=== PATIENT | male | born 1960 | race Caucasian/White ===

== ENCOUNTER 2017-04-03 09:48 | Outpatient (CLI) | payer BC | END 2017-04-03 09:49 | disposition home or self-care (01) | LOC: LAB.F 09:48 | PROVIDERS: ATTEND Physician Assistant Medical | DX: Z79.899 Other long term (current) drug therapy (principal); E29.1 Testicular hypofunction | CPT/HCPCS: 36415; 81599; 84402; 84403 ==

== ENCOUNTER 2017-07-21 16:24 | Emergency (ER) | payer BC ==
[2017-07-21 16:40] VITALS: BP 144/74
[2017-07-21] MEDS ORDERED: DEXAMETHASONE 10 MG/ML VIAL PO STA (16:46)
--- NOTE | 2017-07-21 16:49 | ED Physician Documentation ---
PD HPI URI - Stated complaint Stated Complaint: COUGH, SOB - Chief complaint Chief Complaint: Resp - History obtained from History obtained from: Patient, Family - History of Present Illness Timing - onset: How many days ago (4) Timing duration: Days (4) Timing details: Gradual onset, Still present Associated symptoms: Fever, Nasal congestion, Rhinorrhea, Sinus pain, Sore throat, Dry cough, Dyspnea Contributing factors: Sick contact Improves by: Rest, Medication Worsened by: Activity Similar symptoms before: Diagnosis (bronchitis) Recently seen: Not recently seen - Additional information Additional information: 57-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 PD PAST MEDICAL HISTORY - Present Medications Home Medications: Ambulatory Orders Medication Instructions Recorded Confirmed Azithromycin [Zithromax] 250 mg PO DAILY #6 tablet 07/21/17 Benzonatate [Tessalon] 100 - 200 mg PO TID PRN #20 capsule 07/21/17 PD ED PE NORMAL - Vitals Vital signs reviewed: Yes (hypertensive ) - General General: Alert and oriented X 3, No acute distress, Well developed/nourished - HEENT HEENT: Atraumatic, PERRL, EOMI, Other (both TM's are erythematous with rounding of the landmarks. The pharnyx is erythematous without exudate. ) - Neck Neck: Supple, no meningeal sign, No bony TTP - Cardiac Cardiac: RRR, No murmur - Respiratory Respiratory: No respiratory distress, Other (clear but with diminished sounds. ) - Abdomen Abdomen: Soft, Non tender - Back Back: No CVA TTP, No spinal TTP - Derm Derm: Normal color, Warm and dry, No rash - Extremities Extremities: No deformity, No edema - Neuro Neuro: Alert and oriented X 3, No motor deficit, No sensory deficit Eye Opening: Spontaneous Motor: Obeys Commands Verbal: Oriented GCS Score: 15 - Psych Psych: Normal mood, Normal affect Results - Vitals Vitals: Vital Signs - 24 hr 07/21/17 16:38 Temperature 36.8 C Heart Rate 77 Respiratory 18 Rate Blood Pressure 144/74 H O2 Saturation 99 Oxygen O2 Source Room air - EKG (time done) 1643 Rate: Rate (enter#) (70) Rhythm: NSR Norman: Normal Ischemia: Normal ST segments Other comments: Other comments (early transition) Compare to prior EKG: Old EKG unavailable Computer interpretation: Agree with computer PD MEDICAL DECISION MAKING - ED course Complexity details: reviewed results, re-evaluated patient, considered differential, d/w patient, d/w family ED course: 57-year-old male with a cough and congestion has otitis on examination he does have some diminished breath sounds without wheezes he is not hypoxic. He is administered Dexamethasone and we will place him on some azithromycin. Departure - Departure Disposition: 01 Home, Self Care Clinical Impression: Otitis media Qualifiers: Otitis media type: suppurative Chronicity: acute Laterality: bilateral Recurrence: not specified as recurrent Spontaneous tympanic membrane rupture: without spontaneous rupture Qualified Code(s): H66.003 - Acute suppurative otitis media without spontaneous rupture of ear drum, bilateral Condition: Stable Instructions: ED Otitis Media Acute Adult Follow-Up: Radha Ferro PA-C [Primary Care Provider] - Prescriptions: Azithromycin [Zithromax] 250 mg PO DAILY #6 tablet Benzonatate [Tessalon] 100 - 200 mg PO TID PRN #20 capsule PRN Reason: Cough Forms: Activity restrictions
== END 2017-07-21 17:02 | disposition home or self-care (01) ==
LOC: ED 16:24
DX: H66.003 Acute suppurative otitis media without spontaneous rupture of ear drum, bilateral (principal)
CPT/HCPCS: 93005; 99281; 99283

== ENCOUNTER 2018-01-23 07:46 | Outpatient (CLI) | payer BC ==
[2018-01-23 08:37] LABS: BUN - BLOOD UREA NITROGEN 16 mg/dL (6-20); CALCIUM 9.2 mg/dL (8.5-10.3); CARBON DIOXIDE - CO2 30 mmol/L (21-32); CHLORIDE 101 mmol/L (101-111); CHOL/HDL RATIO 3.6 (<5.0); CHOLESTEROL 195 mg/dL; CREATININE 1.1 mg/dL (0.6-1.2); GFR - MDRD 69 (>89); GLUCOSE 96 mg/dL (70-100); HDL CHOLESTEROL 54 mg/dL; LDL CHOLESTEROL,CALCULATED 128 mg/dL; LDL/HDL RATIO 2.4 (<3.6); SODIUM 139 mmol/L (135-145); VLDL CHOLESTEROL 13 mg/dL
== END 2018-01-23 07:47 | disposition home or self-care (01) ==
LOC: LAB 07:46
PROVIDERS: ATTEND Internal Medicine
DX: Z00.00 Encounter for general adult medical examination without abnormal findings (principal); E29.1 Testicular hypofunction; Z12.5 Encounter for screening for malignant neoplasm of prostate
CPT/HCPCS: 36415; 80048; 80061; 81599; 83721; 84153

== ENCOUNTER 2018-04-10 10:27 | Outpatient (CLI) | payer BC ==
--- NOTE | 2018-04-12 01:49 | CT Report ---
Reason: GRECIA ABUSE Procedure Date: 04/10/2018 Accession Number: [id number] / [id number] Procedure: CT - Chest/Lung Screen Low Dose W/O CPT Code: FULL RESULT: EXAM CT LUNG SCREEN EXAM DATE: 04/10/2018 10:43 AM. HISTORY: 58-year-old patient with [id number] smoking history. Currently smoking: No. Years since quittin. COMPARISON: CT THORAX W/O CONT 07/31/2012 9:11 AM. TECHNIQUE: CT examination of the entire thorax without contrast was performed using low-dose technique. Thin section coronal, axial, sagittal and MIP axial images were obtained. In accordance with CT protocol optimization, one or more of the following dose reduction techniques were utilized for this exam: automated exposure control, adjustment of mA and/or KV based on patient size, or use of iterative reconstructive technique. FINDINGS: Nodules: Right upper lobe: None. Right middle lobe: None. Right lower lobe: None. Left upper lobe: None. Left lower lobe: None. Emphysema: None. Pleura: Unremarkable. Aorta: Unremarkable. Mediastinum: Unremarkable. Coronary calcifications: None. Other pulmonary findings: There is some mild reticular density within the posterior lungs which probably represent scarring. Other extrapulmonary findings: There are remote left-sided rib fractures. There is a small hiatal hernia. IMPRESSION: Lung-RADS ASSESSMENT CATEGORY: 1 - Negative. Probability of malignancy: Less than 1% RECOMMENDATION: Continue with annual screening as indicated. Recommended follow up based on Lung-RADS guidelines. RADIA
== END 2018-04-10 10:28 | disposition home or self-care (01) ==
LOC: DI 10:27
PROVIDERS: ATTEND Internal Medicine
DX: Z12.2 Encounter for screening for malignant neoplasm of respiratory organs (principal); Z87.891 Personal history of nicotine dependence

== ENCOUNTER 2018-07-17 09:24 | Outpatient (CLI) | payer BC | END 2018-07-17 09:25 | disposition home or self-care (01) | LOC: LAB 09:24 | PROVIDERS: ATTEND Internal Medicine | DX: E29.1 Testicular hypofunction (principal) ==

== ENCOUNTER 2018-07-17 09:55 | Outpatient (CLI) | payer BC | END 2018-07-17 23:59 | disposition home or self-care (01) | LOC: LAB.R 09:55 | PROVIDERS: ATTEND Internal Medicine | DX: E29.1 Testicular hypofunction (principal) | CPT/HCPCS: 36415; 84403 ==

== ENCOUNTER 2019-01-08 13:34 | Outpatient (CLI) | payer BC ==
[2019-01-08 14:11] LABS: BASOPHILS # (AUTO) 0.1 10^3/uL (0.0-0.1); BASOPHILS % (AUTO) 0.5 %; EOSINOPHILS # (AUTO) 0.2 10^3/uL (0.0-0.7); EOSINOPHILS % (AUTO) 1.7 %; HGB - HEMOGLOBIN 16.5 g/dL (14.0-18.0); LYMPHOCYTES # (AUTO) 2.2 10^3/uL (1.5-3.5); LYMPHOCYTES % (AUTO) 19.4 %; MEAN CORPUSCULAR HEMOGLOBIN 31.6 pg (27.0-31.0); MEAN CORPUSCULAR HGB CONC 34.7 g/dL (32.0-36.0); MEAN CORPUSCULAR VOLUME 91.2 fL (80.0-94.0); MEAN PLATELET VOLUME 10.5 fL (7.4-11.4); MONOCYTES # (AUTO) 0.8 10^3/uL (0.0-1.0); MONOCYTES % (AUTO) 6.9 %; NEUTROPHILS # (AUTO) 8.1 10^3/uL (1.5-6.6); NEUTROPHILS % (AUTO) 70.9 %; PLT - PLATELET COUNT 231 10^3/uL (130-450); RED BLOOD COUNT 5.22 10^6/uL (4.70-6.10); WHITE BLOOD COUNT 11.5 x10^3/uL (4.8-10.8)
[2019-01-08 14:32] LABS: ALBUMIN 3.9 g/dL (3.2-5.5); ALBUMIN/GLOBULIN RATIO 1.4 (1.0-2.2); ALKALINE PHOSPHATASE 43 IU/L (42-121); ALT ALANINE AMINOTRANSFERASE 31 IU/L (10-60); AST ASPARTATE AMINOTRANSFERASE 25 IU/L (10-42); BILIRUBIN,TOTAL 0.4 mg/dL (0.2-1.0); BUN - BLOOD UREA NITROGEN 20 mg/dL (6-20); CALCIUM 8.8 mg/dL (8.5-10.3); CARBON DIOXIDE - CO2 25 mmol/L (21-32); CHLORIDE 106 mmol/L (101-111); CHOL/HDL RATIO 4.2 (<5.0); CHOLESTEROL 190 mg/dL; CREATININE 1.2 mg/dL (0.6-1.2); GFR - MDRD 62 (>89); GLUCOSE 113 mg/dL (70-100); HDL CHOLESTEROL 45 mg/dL; LDL CHOLESTEROL,CALCULATED 102 mg/dL; LDL/HDL RATIO 2.3 (<3.6); SODIUM 140 mmol/L (135-145); TOTAL PROTEIN 6.6 g/dL (6.7-8.2); VLDL CHOLESTEROL 43 mg/dL
[2019-01-08 14:59] LABS: PSA TOTAL 2.59 ng/mL (0.000-2.000)
[2019-01-10 15:22] LABS: HEPATITIS C ANTIBODY NON-REACTIVE (NON-REACTIVE)
== END 2019-01-08 13:35 | disposition home or self-care (01) ==
LOC: LAB 13:34
PROVIDERS: ATTEND Internal Medicine
DX: E29.1 Testicular hypofunction (principal); Z13.6 Encounter for screening for cardiovascular disorders; Z72.89 Other problems related to lifestyle; Z79.899 Other long term (current) drug therapy
CPT/HCPCS: 36415; 80053; 80061; 83721; 84153; 84403; 85025; 86803

== ENCOUNTER 2019-06-23 11:20 | Outpatient (CLI) | payer BC ==
[2019-06-23 17:11] LABS: BASOPHILS # (AUTO) 0.1 10^3/uL (0.0-0.1); BASOPHILS % (AUTO) 0.7 %; EOSINOPHILS # (AUTO) 0.2 10^3/uL (0.0-0.7); EOSINOPHILS % (AUTO) 1.5 %; HGB - HEMOGLOBIN 16.5 g/dL (14.0-18.0); LYMPHOCYTES # (AUTO) 1.9 10^3/uL (1.5-3.5); LYMPHOCYTES % (AUTO) 18.6 %; MEAN CORPUSCULAR HEMOGLOBIN 31.5 pg (27.0-31.0); MEAN CORPUSCULAR HGB CONC 33.8 g/dL (32.0-36.0); MEAN CORPUSCULAR VOLUME 93.3 fL (80.0-94.0); MEAN PLATELET VOLUME 11.9 fL (7.4-11.4); MONOCYTES # (AUTO) 0.5 10^3/uL (0.0-1.0); MONOCYTES % (AUTO) 5.1 %; NEUTROPHILS # (AUTO) 7.3 10^3/uL (1.5-6.6); NEUTROPHILS % (AUTO) 73.7 %; PLT - PLATELET COUNT 222 10^3/uL (130-450); RED BLOOD COUNT 5.23 10^6/uL (4.70-6.10); RED CELL DISTRIBUTION WIDTH 13.2 % (12.0-15.0); WHITE BLOOD COUNT 9.9 x10^3/uL (4.8-10.8)
[2019-06-23 17:19] LABS: CALCIUM 8.8 mg/dL (8.5-10.3); CREATININE 1.1 mg/dL (0.6-1.2)
[2019-06-23 17:24] LABS: BILIRUBIN,URINE NEGATIVE (NEGATIVE); GLUCOSE, URINE (UA) NEGATIVE (NEGATIVE); KETONES,URINE (UA) NEGATIVE (NEGATIVE); LEUKOCYTE ESTERASE, URINE NEGATIVE (NEGATIVE); NITRITE,URINE NEGATIVE (NEGATIVE); OCCULT BLOOD,URINE NEGATIVE (NEGATIVE); PROTEIN,URINE NEGATIVE (NEGATIVE); UROBILINOGEN,URINE 0.2 (NORMAL) E.U./dL (NORMAL)
[2019-06-23 17:26] LABS: CLARITY,URINE SL. CLOUDY (CLEAR)
[2019-06-23 17:37] LABS: AMORPHOUS SEDIMENT,UR Few /LPF; BACTERIA,URINE Rare /HPF (None Seen); RBC,URINE 0-5 /HPF (0-5); SQUAMOUS EPITHELIAL CELL,UR RARE Squamous (<= Few)
== END 2019-06-23 11:21 | disposition home or self-care (01) ==
LOC: LAB.S 11:20
PROVIDERS: ATTEND Internal Medicine
DX: N40.1 Benign prostatic hyperplasia with lower urinary tract symptoms (principal); E29.1 Testicular hypofunction
CPT/HCPCS: 36415; 80048; 81001; 84153; 85025

== ENCOUNTER 2019-09-02 10:02 | Emergency (ER) | payer BC ==
[2019-09-02 10:37] LABS: BASOPHILS # (AUTO) 0.1 10^3/uL (0.0-0.1); BASOPHILS % (AUTO) 0.7 %; EOSINOPHILS # (AUTO) 0.1 10^3/uL (0.0-0.7); EOSINOPHILS % (AUTO) 1.4 %; HGB - HEMOGLOBIN 16.4 g/dL (14.0-18.0); LYMPHOCYTES # (AUTO) 1.6 10^3/uL (1.5-3.5); LYMPHOCYTES % (AUTO) 15.6 %; MEAN CORPUSCULAR HEMOGLOBIN 31.2 pg (27.0-31.0); MEAN CORPUSCULAR HGB CONC 33.5 g/dL (32.0-36.0); MEAN PLATELET VOLUME 10.9 fL (7.4-11.4); MONOCYTES # (AUTO) 0.6 10^3/uL (0.0-1.0); NEUTROPHILS # (AUTO) 7.7 10^3/uL (1.5-6.6); NEUTROPHILS % (AUTO) 75.9 %; PLT - PLATELET COUNT 220 10^3/uL (130-450); RED BLOOD COUNT 5.26 10^6/uL (4.70-6.10); RED CELL DISTRIBUTION WIDTH 13.6 % (12.0-15.0); WHITE BLOOD COUNT 10.1 x10^3/uL (4.8-10.8)
--- NOTE | 2019-09-02 10:39 | ED Physician Documentation ---
PD HPI CHEST PAIN - Stated complaint Stated Complaint: CHEST PX/SOA - Chief complaint Chief Complaint: Cardiac - History obtained from History obtained from: Patient - History of Present Illness Timing - onset: How many weeks ago (2) Timing - onset during: Rest, Emotional event (notes the discomfort when anxious. Has not noted it with walking nor stairs. He says he does do brisk walks several times weekly. Works at [employer] and has felt okay at work.). No: Exertion Timing - duration: Minutes, Hours Timing - details: Gradual onset, Intermittant, Waxing and waning Quality: Aching, Dull. No: Pressure Location: Substernal, Left chest Radiation: No: Jaw, Neck Improved by: No: Rest Worsened by: Other (feeling anxious). No: Exertion, Movement, Palpation, Position Associated symptoms: Shortness of air, Diaphoresis, Feeling faint / dizzy, General Weakness, Palpitations. No: Nausea, Cough Similar symptoms before: No diagnosis (seen in office and thought anxiety. Started on Escitalopram and Clonazepam. Did feel better after Clonazepam last few night before bed. He was Rx it nightly, so had not taken it during the day.) Recently seen: Clinic Review of Systems Constitutional: denies: Fever, Chills Nose: denies: Rhinorrhea / runny nose, Congestion Throat: denies: Sore throat Cardiac: reports: Chest pain / pressure, Palpitations. denies: Pedal edema, Calf pain Respiratory: reports: Dyspnea. denies: Cough, Wheezing GI: denies: Nausea, Vomiting, Diarrhea Skin: denies: Rash, Lesions Neurologic: denies: Generalized weakness, Focal weakness, Numbness, Near syncope, Headache PD PAST MEDICAL HISTORY - Past Medical History Past Medical History: Yes Cardiovascular: Hypertension Respiratory: None Neuro: None Endocrine/Autoimmune: None GI: None : None HEENT: None Psych: Anxiety Musculoskeletal: None Derm: None - Past Surgical History Past Surgical History: No - Present Medications Home Medications: Ambulatory Orders Medication Instructions Recorded Confirmed Pregabalin [Lyrica] 1 tab PO TID 07/21/17 11/17/18 Suvorexant [Belsomra] 1 tab PO DAILY 07/21/17 11/17/18 Tadalafil [Cialis] 1 tab PO DAILY 07/21/17 11/17/18 Testosterone 1 tab PO BID 07/21/17 11/17/18 Escitalopram Oxalate [Lexapro] 5 mg PO 09/02/19 clonazePAM [Clonazepam] 0.5 mg PO 09/02/19 clonazePAM [KlonoPIN] 1 - 2 tab PO BID PRN #20 tablet 09/02/19 - Allergies Allergies/Adverse Reactions: Allergies Allergy/AdvReac Type Severity Reaction Status Date / Time No Known Drug Allergies Allergy Verified 09/02/19 10:13 - Social History Does the pt smoke?: No Smoking Status: Never smoker Does the pt drink ETOH?: No Does the pt have substance abuse?: Yes - Immunizations Immunizations are current?: Yes - POLST Patient has POLST: No PD ED PE NORMAL - Vitals Vital signs reviewed: Yes - General General: Alert and oriented X 3, No acute distress, Well developed/nourished - HEENT HEENT: Pharynx benign - Neck Neck: Supple, no meningeal sign, No adenopathy - Cardiac Cardiac: RRR, No murmur - Respiratory Respiratory: Clear bilaterally - Abdomen Abdomen: Soft, Non tender - Derm Derm: Normal color, Warm and dry - Extremities Extremities: No deformity, No tenderness to palpate, Normal ROM s pain, No edema - Neuro Neuro: Alert and oriented X 3, No motor deficit, Normal speech Eye Opening: Spontaneous Motor: Obeys Commands Verbal: Oriented GCS Score: 15 Results - Vitals Vitals: Vital Signs - 24 hr 09/02/19 09/02/19 09/02/19 10:10 10:13 12:12 Temperature 36.7 C 36.7 C Heart Rate 56 L 57 L 18 L Respiratory 18 18 18 Rate Blood Pressure 139/92 H 139/92 H 140/91 H O2 Saturation 99 99 99 Oxygen O2 Source Room air - EKG (time done) 10:04 Rate: Rate (enter#) (57) Rhythm: Sinus bradycardia Cisco: Normal Intervals: Normal [place] QRS: Normal Ischemia: Normal ST segments. No: ST elevation c/w ischemia, ST depression - Labs Labs: Laboratory Tests 09/02/19 09/02/19 09/02/19 10:29 10:29 10:29 WBC 10.1 RBC 5.26 Hgb 16.4 Hct 48.9 MCV 93.0 MCH 31.2 H MCHC 33.5 RDW 13.6 Plt Count 220 MPV 10.9 Neut # (Auto) 7.7 H Lymph # (Auto) 1.6 Trinity # (Auto) 0.6 Eos # (Auto) 0.1 Baso # (Auto) 0.1 Absolute Nucleated RBC 0.00 Nucleated RBC % 0.0 Sodium 139 Potassium 4.0 Chloride 106 Carbon Dioxide 24 Anion Gap 9.0 BUN 17 Creatinine 1.0 Estimated GFR (MDRD) 77 L Glucose 115 H Calcium 9.0 Total Bilirubin 0.8 AST 24 ALT 27 Alkaline Phosphatase 52 Troponin I High Sens < 2.3 L B-Natriuretic Peptide Total Protein 6.7 Albumin 4.0 Globulin 2.7 Albumin/Globulin Ratio 1.5 Lipase 60 H TSH 09/02/19 09/02/19 10:29 10:29 WBC RBC Hgb Hct MCV MCH MCHC RDW Plt Count MPV Neut # (Auto) Lymph # (Auto) Trinity # (Auto) Eos # (Auto) Baso # (Auto) Absolute Nucleated RBC Nucleated RBC % Sodium Potassium Chloride Carbon Dioxide Anion Gap BUN Creatinine Estimated GFR (MDRD) Glucose Calcium Total Bilirubin AST ALT Alkaline Phosphatase Troponin I High Sens B-Natriuretic Peptide 27 Total Protein Albumin Globulin Albumin/Globulin Ratio Lipase TSH 1.01 - Rads (name of study) chest xray Radiology: Prelim report reviewed (normal chest xray), See rad report PD MEDICAL DECISION MAKING - ED course Complexity details: reviewed results, considered differential (nonexertional chest pain since last night, feeling anxious. ), d/w patient Departure - Departure Disposition: Home, Self Care Clinical Impression: Stress reaction Chest pain Qualifiers: Chest pain type: precordial pain Qualified Code(s): R07.2 - Precordial pain Condition: Stable Record reviewed to determine appropriate education?: Yes Instructions: ED Chest Pain NonCardiac Follow-Up: Winston Field MD [Primary Care Provider] - Prescriptions: clonazePAM [KlonoPIN] 1 - 2 tab PO BID PRN #20 tablet PRN Reason: Anxiety Comments: Your EKG, chest x-ray, blood tests are normal here so no signs of heart failure or heart attack or enlarged heart nor any signs of fluid in the lungs or pneumonia. Your blood count and electrolytes are okay as well. I presume your discomfort is related to stress or anxiety. You can increase the clonazepam to twice daily if needed for anxiety. Continue the S-Citalopram you were prescribed as well. Follow-up with your primary care early next week if not doing better. Also discussed with your primary care the idea of heart stress test to fully ensure no signs of heart disease. Return if worsening symptoms. Discharge Date/Time: 09/02/19 12:12
[2019-09-02 10:48] LABS: ALBUMIN/GLOBULIN RATIO 1.5 (1.0-2.2); BILIRUBIN,TOTAL 0.8 mg/dL (0.2-1.0); TOTAL PROTEIN 6.7 g/dL (6.7-8.2)
--- NOTE | 2019-09-02 10:49 | XRAY Report ---
Reason: Chest pain Procedure Date: 09/02/2019 Accession Number: [id number] / [id number] Procedure: XR - Chest 1 View X-Ray CPT Code: 06292 Final Report FULL RESULT: EXAM: CHEST RADIOGRAPHY EXAM DATE: 09/02/2019 10:24 AM. CLINICAL HISTORY: Chest pain. COMPARISON: Chest radiograph 02/01/2015 11:38 AM CHEST SCREEN LOW DOSE W/O 04/10/2018 10:32 AM. TECHNIQUE: 1 view. FINDINGS: Lungs/Pleura: No focal opacities evident. No pleural effusion. No pneumothorax. Mediastinum: Within exam limitations, the cardiomediastinal contour is normal. Other: There are old healed left rib fracture deformities, as seen on prior exams. No acute displaced fracture identified. IMPRESSION: No acute cardiopulmonary abnormality. RADIA
[2019-09-02] MEDS ORDERED: LORazepam 2 MG/ML VIAL IVP STA (11:45)
[2019-09-02 12:14] VITALS: BP 140/91
== END 2019-09-02 12:12 | disposition home or self-care (01) ==
LOC: ED 10:02
DX: F43.9 Reaction to severe stress, unspecified (principal); F41.9 Anxiety disorder, unspecified; R07.2 Precordial pain; R00.1 Bradycardia, unspecified; I10 Essential (primary) hypertension
CPT/HCPCS: 36415; 71045; 83690; 83880; 84484; 93005; 96374; 99284; J2060; 80053; 84443; 85025

== ENCOUNTER 2020-01-07 12:25 | Outpatient (CLI) | payer BC | END 2020-01-07 12:26 | disposition home or self-care (01) | LOC: LAB.S 12:25 | PROVIDERS: ATTEND Internal Medicine | DX: R53.83 Other fatigue (principal); E29.1 Testicular hypofunction | CPT/HCPCS: 36415; 84403; 84443 ==

== ENCOUNTER 2021-02-11 16:47 | Outpatient (CLI) | payer BC ==
--- NOTE | 2021-02-11 17:27 | XRAY Report ---
PROCEDURE: Wrist 3 View BILAT INDICATIONS: JOINT PAIN TECHNIQUE: 6 views of the wrist were acquired. COMPARISON: None FINDINGS: Bones: No fractures or dislocations. Mild osteoarthritic changes along radial aspect of bilateral wr ist are seen slightly worse on the right side. No gross bony erosive changes. No suspicious bony lesi ons. Scaphoid view: Bilateral scaphoids are intact. Soft tissues: No suspicious soft tissue calcifications. 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 No fracture or dislocation. No evidence of osteonecrosis. No gross bony erosive changes. Reviewed by: Zen Boykin MD on 02/11/2021 5:26 PM PDT Approved by: Zen Boykin MD on 02/11/2021 5:26 PM PDT Station ID: [id number]
--- NOTE | 2021-02-11 17:38 | XRAY Report ---
PROCEDURE: Hand 3 View BILAT INDICATIONS: PAIN IN UNSPECIFIED JOINT TECHNIQUE: 6 views of the hand(s) acquired. COMPARISON: None FINDINGS: Bones: No fractures or dislocations. Mild osteoarthritic changes are noted in bilateral MCP joints and interphalangeal joints. No definite bony erosion is seen. No suspicious bony lesions. Soft tissues: No suspicious soft tissue calcifications. 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 No gross bony erosive changes. No fracture or dislocation. Reviewed by: Zen Boykin MD on 02/11/2021 5:36 PM PDT Approved by: Zen Boykin MD on 02/11/2021 5:36 PM PDT Station ID: [id number]
== END 2021-02-11 16:48 | disposition home or self-care (01) ==
LOC: DI.S 16:47
PROVIDERS: ATTEND Internal Medicine
DX: M19.032 Primary osteoarthritis, left wrist (principal); M19.031 Primary osteoarthritis, right wrist; M19.042 Primary osteoarthritis, left hand; M19.041 Primary osteoarthritis, right hand

== ENCOUNTER 2021-06-24 14:20 | Outpatient (CLI) | payer BC ==
--- NOTE | 2021-06-24 16:07 | Ultrasound Report ---
PROCEDURE: Bladder INDICATIONS: LOWER URINARY TRACT SX TECHNIQUE: Real-time scanning was performed of the bladder, with image documentation. COMPARISON: None. FINDINGS: Bladder: Pre-void bladder volume is 90 mL. Post-void residual is 70 mL. Pre-void images demonstrat e no intraluminal masses or stones. On pre-void images, no ureteral jets are noted with color Dopple r interrogation. (Of note, ureteral jets may not be detectable in up to 25% of cases due to insuffic ient differences in specific gravity between ureteral and bladder urine). Miscellaneous: No free pelvic fluid. Enlarged prostate gland with mass effect on floor urinary blad nathaniel is seen and measures 4.9 x 3.7 x 4.7 cm in size with a volume of 45 cc. IMPRESSION: Mildly enlarged prostate gland with mild mass effect on floor of urinary bladder. No gross bladder wa ll thickening or discrete bladder wall mass Moderate amount of postvoid residual as above. Reviewed by: Zen Boykin MD on 06/24/2021 4:05 PM PDT Approved by: Zen Boykin MD on 06/24/2021 4:05 PM PDT Station ID: [id number]
== END 2021-06-24 14:21 | disposition home or self-care (01) ==
LOC: DI 14:20
PROVIDERS: ATTEND Internal Medicine
DX: N40.1 Benign prostatic hyperplasia with lower urinary tract symptoms (principal); R39.9 Unspecified symptoms and signs involving the genitourinary system

== ENCOUNTER 2021-10-30 13:02 | Outpatient (CLI) | payer BC ==
--- NOTE | 2021-10-30 14:15 | XRAY Report ---
PROCEDURE: Chest 2 View X-Ray INDICATIONS: CHRONIC COUGH TECHNIQUE: 2 view(s) of the chest. COMPARISON: None. FINDINGS: Surgical changes and devices: None. Lungs and pleura: No pleural effusions or pneumothorax. Lungs are clear. Mediastinum: Mediastinal contours are normal. Heart size is normal. Bones and chest wall: No suspicious bony abnormalities. Healed left-sided rib fractures. Soft tissu es appear unremarkable. IMPRESSION: No acute cardiopulmonary abnormality. Reviewed by: Walter Rodriguez on 10/30/2021 2:14 PM PDT Approved by: Walter Rodriguez on 10/30/2021 2:14 PM PDT Station ID: [id number]
== END 2021-10-30 13:03 | disposition home or self-care (01) ==
LOC: DI.S 13:02
PROVIDERS: ATTEND Nurse Practitioner Family
DX: R05.3 Chronic cough (principal)

== ENCOUNTER 2023-04-16 13:27 | Outpatient (CLI) | payer BC | END 2023-04-16 13:28 | disposition home or self-care (01) | LOC: LAB.S 13:27 | PROVIDERS: ATTEND Urology | DX: E29.1 Testicular hypofunction (principal); N40.0 Benign prostatic hyperplasia without lower urinary tract symptoms | CPT/HCPCS: 36415; 84153 ==

== ENCOUNTER 2023-05-28 15:33 | Outpatient (CLI) | payer BC | END 2023-05-28 15:34 | disposition home or self-care (01) | LOC: RT 15:33 | PROVIDERS: ATTEND Registered Nurse | DX: Z53.9 Procedure and treatment not carried out, unspecified reason (principal) | CPT/HCPCS: 93005 ==

== ENCOUNTER 2023-09-09 08:52 | Outpatient (CLI) | payer BC ==
--- NOTE | 2023-09-09 14:28 | MRI Report ---
PROCEDURE: Cervical Spine WO INDICATIONS: CHRONIC NECK PAIN TECHNIQUE: Noncontrast sagittal T1 spin echo and T2 fast spin echo, sagittal STIR, foraminal oblique sagittal T2 fast spin echo, and axial gradient echo or T2 fast spin echo through the cervical spine. COMPARISON: None. FINDINGS: Image quality: Excellent. Alignment and Curvature: There is normal bony alignment. Bone Marrow: Marrow demonstrates normal overall signal. Spinal Cord: Visualized spinal cord has normal size and signal. No cerebellar tonsillar herniation. Paraspinous Soft Tissues: No paravertebral masses. Prevertebral soft tissues are normal in thicknes s. C2-C3: Disc desiccation and minimal posterior disc osteophyte complex. No central canal or neurofora lui stenosis. C3-C4: Disc desiccation and posterior disc osteophyte complex. Facet and uncovertebral arthropathy. Moderate central canal stenosis. Severe left and moderate to severe right neuroforaminal stenosis. C4-C5: Disc desiccation and mild posterior disc osteophyte complex. No central canal stenosis. Facet and uncovertebral arthropathy. Mild left and no right neuroforaminal stenosis. C5-C6: Disc desiccation and posterior disc osteophyte complex. Mild central canal stenosis. Facet an d uncovertebral arthropathy. Severe left and moderate right neuroforaminal stenosis. C6-C7: Disc desiccation and mild posterior disc osteophyte complex. No significant central canal claudine nosis. Facet and uncovertebral arthropathy. Mild bilateral neuroforaminal stenosis. C7-T1: No central canal or neuroforaminal stenosis. IMPRESSION: 1.Multilevel degenerative changes of the cervical spine as described above. 2.Moderate central canal stenosis at C3-C4. 3.Severe neuroforaminal stenosis on the left at C3-C4 and C5-C6. Moderate to severe right neuroforami nal stenosis at C3-C4. Reviewed by: Lawson Simmons MD on 09/09/2023 2:27 PM PDT Approved by: Lawson Simmons MD on 09/09/2023 2:27 PM PDT Station ID: [id number]
== END 2023-09-09 08:53 | disposition home or self-care (01) ==
LOC: DI 08:52
PROVIDERS: ATTEND Physical Medicine & Rehabilitation
DX: M47.812 Spondylosis without myelopathy or radiculopathy, cervical region (principal); M50.31 Other cervical disc degeneration, high cervical region; M48.02 Spinal stenosis, cervical region